=== PATIENT | female | born 1975 | race Caucasian/White ===

== ENCOUNTER 2024-05-13 14:48 | Outpatient (CLI) | payer BC | END 2024-05-13 14:49 | disposition home or self-care (01) | LOC: BICMAMMO 14:48 | PROVIDERS: ATTEND Nurse Practitioner Family | DX: Z12.31 Encounter for screening mammogram for malignant neoplasm of breast (principal); Z85.820 Personal history of malignant melanoma of skin; Z98.82 Breast implant status | CPT/HCPCS: 77063; 77067 ==